=== PATIENT | male | born 1970 | race Two or more races ===

== ENCOUNTER 2024-03-27 12:51 | Inpatient (IN) | payer MEDICAID, OTHER ==
[~2024-03-27] VITALS: Ht 162.6 cm; Wt 80.3 kg
[2024-03-27] MEDS: LABETALOL HCL 20 MG/4 ML VL IV ONE
--- NOTE | 2024-03-27 13:19 | ED.PDOC ---
GI ASSESSMENT HPI Comments 53 y.o male with PMHx of HTN, presents to the ED for a chief complaint of epigastric and lower abdominal pain x 1 day associated with black colored diarrhea this morning. Patient reports pain is constant, begins at the epigastric region and is so located in the lower abdominal area. Patient reports taking pepto bismol last night prior to the diarrhea episode. He denies any bright red bloody stool, nausea, vomiting, fever, chills. No history of blood thinner intake or recent use of ASA. Patient also mentions drinking 2-3 beers daily. Chief Complaint: GI Bleed Time Seen by MD: 13:09 Primary Care Provider: NONE Reviewed Notes: Nurses Notes, Medications, Allergies Allergies: Coded Allergies: Penicillins (Verified Allergy, Severe, 03/27/24) Information Source: Patient Mode of Arrival: Ambulatory Timing: Days (1) Duration: Since onset Quality: Aching Vomitus: None Stool: Loose, Black Severity: Moderate Recent: None Recent Hx of: Other (peptobismol use ) Pain Location: Diffuse, Epigastric Associated sign and symptoms: Diarrhea, Melena, Abdominal Pain Past Medical History PAST MEDICAL HISTORY: HTN Surgical History (Other): left wrist Family History Family History: Reviewed,noncontributory to illness Social History Smoker: Non-Smoker Alcohol: Heavy Drugs: Denies Drug Use Lives In: Home Constitutional: denies: chills, diaphoresis, fatigue, fever, malaise, sweats, weakness, others EENTM: denies: blurred vision, double vision, ear bleeding, ear discharge, ear drainage, ear pain, ear ringing, eye pain, eye redness, hearing loss, mouth pain, mouth swelling, nasal discharge, nose bleeding, nose congestion, nose pain, photophobia, tearing, throat pain, throat swelling, voice changes, others Respiratory: denies: cough, hemoptysis, orthopnea, SOB at rest, shortness of breath, SOB with excertion, stridor, wheezing, others Cardiovascular: denies: chest pain, dizzy spells, diaphoresis, Dyspnea on exertion, edema, irregular heart beat, left arm pain, lightheadedness, palpitations, PND, syncope, others Gastrointestinal: reports: abdominal pain, diarrhea, melena; denies: abdomen distended, blood streaked bowels, constipated, dysphagia, difficulty swallowing, hematemesis, nausea, poor appetite, poor fluid intake, rectal bleeding, rectal pain, vomiting, others Genitourinary: denies: burning, dysuria, flank pain, frequency, hematuria, incontinence, penile discharge, penile sore, pain, testicle pain, testicle swelling, urgency, others Neurological: denies: dizziness, fainting, headache, left sided numbness, left sided weakness, numbness, paresthesia, pre-existing deficit, right sided numbness, right sided weakness, seizure, speech problems, tingling, tremors, weakness, others Musculoskeletal: denies: back pain, gout, joint pain, joint swelling, muscle pain, muscle stiffness, neck pain, others Integumetry: denies: bruises, change in color, change in hair/nails, dryness, laceration, lesions, lumps, rash, wounds, others Allergic/Immunocompromised: denies: Difficulty Healing, Frequent Infections, Hives, Itching, others Hematologic/Lymphatic: denies: anemia, blood clots, easy bleeding, easy bruising, swollen glands, others Endocrine: denies: excessive hunger, excessive sweating, excessive thirst, excessive urination, flushing, intolerance to cold, intolerance to heat, unexplained weight gain, unexplained weight loss, others Psychiatric: denies: anxiety, bipolar disorder, depression, hopeless, panic disorder, schizophrenia, sleepless, suicidal, others All Other Systems: Reviewed and Negative Physical Exam General Appearance: No Apparent Distress HEENT: Other (Moist mucous membranes. Face symmetric.) Neck: Full Range of Motion, Normal Inspection Respiratory: Chest Non-Tender, No Accessory Muscle Use, No Respiratory Distress, Normal Breath Sounds Cardiovascular: No Edema, No JVD, Regular Rate/Rhythm Breast Exam: Deferred Gastrointestinal: Epigastric, Soft, Suprapubic, Tenderness Genitalia: Deferred Pelvic: Deferred Rectal: Deferred Extremities: Normal inspection, Normal range of motion, Non-tender, No pedal edema Neurologic: Alert (Oriented x4), Normal Affect, Normal Mood, Other (Ambulatory without difficulty. No gross focal deficit.) Cerebellar Function: NOT DONE Reflexes: NOT DONE Skin: Dry, Normal Color, Warm Lymphatic: NOT DONE Was a procedure done? Was a procedure done?: No GI differential Dx Differential Diagnosis: Appendicitis, Diverticular disease, Gastritis/PUD, Gastroenteritis, Inflammatory BD, Pancreatitis, UTI, Dehydration, Electrolyte Imbalance, Food Poisoning, Bacterial, Viral, Hypovolemia, Ischemic Bowel, Anemia, Esophageal Varicies, Stress Ulcer X-Ray, Labs, Meds, VS Vital Signs Date Time Temp Pulse Resp B/P (MAP) Pulse Ox O2 Delivery O2 Flow Rate FiO2 03/27/24 18:48 102 19 166/84 03/27/24 17:46 107 26 160/74 03/27/24 17:34 99.3 107 28 160/74 (102) 94 99.3 03/27/24 17:34 107 26 94 Room Air* 0 21 03/27/24 12:58 99.2 134 16 144/95 (111) 94 Lab Test 03/27/24 14:32 03/27/24 13:44 Range/Units Urine Color [place] H Yellow Urine Clarity Turbid H Clear Urine pH 5.5 5.0-9.0 Urine Specific [place] 1.029 1.001-1.035 Urine Protein 1+ H Negative Urine Ketones 1+ H Negative Urine Blood Negative Negative /uL Urine Nitrite Negative Negative Urine Bilirubin 1+ Negative Urine Urobilinogen 4 H Negative mg/dL Urine Leukocyte Esterase Trace Negative /uL Urine RBC 2 0 - 3 /hpf Urine Microscopic WBC 3 0-3 /HPF Urine Squamous Epithelial Cells Few <5 /hpf Urine Bacteria Few H None Seen /hpf Urine Hyaline Casts Many 0 - 2 /lpf Urine Mucus Few None Seen Urine Glucose Normal Normal mg/dL White Blood Count 15.9 H 4.4-10.8 10^3/uL Red Blood Count 4.63 4.5-5.90 10^6/uL Hemoglobin 15.1 13.5-17.5 g/dL Hematocrit 45.6 41.0-53.0 % Mean Corpuscular Volume 98.5 80.0-100.0 fL Mean Corpuscular Hemoglobin 32.6 H 28.0-32.0 pg Mean Corpuscular Hemoglobin Concent 33.1 32.0-36.0 g/dL Red Cell Distribution Width 14.3 11.8-14.3 % Platelet Count 237 140-450 10^3/uL Mean Platelet Volume 10.0 6.9-10.8 fL Neutrophils (%) (Auto) 83.8 H 37.0-80.0 % Lymphocytes (%) (Auto) 6.3 L 10.0-50.0 % Monocytes (%) (Auto) 9.5 0.0-12.0 % Eosinophils (%) (Auto) 0.2 0.0-7.0 % Basophils (%) (Auto) 0.2 0.0-2.0 % Neutrophils # (Auto) 13.3 H 1.6-8.6 10 ^3/uL Lymphocytes # (Auto) 1.0 0.4-5.4 10 ^3/uL Monocytes # (Auto) 1.5 H 0-1.3 10 ^3/uL Eosinophils # (Auto) 0 0-0.8 10 ^3/uL Basophils # (Auto) 0 0-0.2 10 ^3/uL Nucleated Red Blood Cells 0.1 % Sodium Level 136 136-145 mmol/L Potassium Level 4.1 3.5-5.1 mmol/L Chloride Level 102 98-107 mmol/L Carbon Dioxide Level 27 20-31 mmol/L Anion Gap 7 5-15 Blood Urea Nitrogen 13 9-23 mg/dL Creatinine 0.93 0.700-1.30 mg/dL Glomerular Filtration Rate Calc 97 >90 mL/min BUN/Creatinine Ratio 14.0 10.0-20.0 Serum Glucose 112 H 74-106 mg/dL Calcium Level 9.9 8.7-10.4 mg/dL Total Bilirubin 1.1 H 0.2-1.0 mg/dL Aspartate Amino Transferase (AST) 20 13-40 U/L Alanine Aminotransferase (ALT) 21 7-40 U/L Alkaline Phosphatase 122 H 46-116 U/L Total Protein 7.3 5.7-8.2 g/dL Albumin 4.1 3.2-4.8 g/dL Lipase 25 12-53 U/L Current Medications Medications (Trade) Dose Ordered Sig/Willi Route Start Time Stop Time Status Last Admin Sodium Chloride 1,000 ml @ 1,000 mls/hr Q1H ONCE IV 03/27/24 14:00 03/27/24 14:59 DC 03/27/24 17:46 Morphine Sulfate 4 mg ONCE ONCE IV 03/27/24 14:00 03/27/24 14:02 DC 03/27/24 17:46 Ondansetron HCl (Zofran) 4 mg ONCE ONCE IV 03/27/24 14:00 03/27/24 14:02 DC 03/27/24 17:46 Pantoprazole Sodium (Protonix) 40 mg ONCE ONCE IV 03/27/24 14:15 03/27/24 14:35 DC 03/27/24 17:[address] [address] Ph: [phone] DIAGNOSTIC IMAGING Diagnostic Imaging Report : [id number] Signed PATIENT: DIAMOND LERNER ACCT: [id number] UNIT: [id number] : 1970 LOC: ER ROOM / BED: / AGE / SEX: 53 / M ADM STATUS: REG ER SERVICE [id number] ORDERING PHYSICIAN: BREA LYNHC MD PROCEDURE(s): ABPL - CT AB PEL WO CON-NO ORAL OR IV REASON: epig and low abd pain, diarrhea ORDER NUMBER(s): [id number], ACCESSION NUMBER(s): [id number] Exam: CT CT AB PEL WO CON-NO ORAL OR IV History: epig and low abd pain, diarrhea Comparison Study: None available at time of dictation. TECHNIQUE: Multidetector CT of the abdomen and pelvis without contrast. Axial, coronal and sagittal multiplanar reformats were obtained from the axial data set by the technologist. Radiation Dose Information: CT Dose: CTDI volume is 12.51 mGy. Dose-length product is 641.98 mGy*cm FINDINGS: Right basilar atelectasis. Partially visualized heart is unremarkable. Trace pericardial effusion. Mild hepato megaly. Otherwise, liver, spleen, gallbladder, and pancreas unremarkable. Mild fat stranding adjacent to the bilateral adrenal glands. No adrenal nodules are noted. Mild nonspecific bilateral perirenal fat stranding. 2.8 cm left renal lower pole cyst. Postsurgical changes of the interpolar to lower pole region of the right kidney with associated scarring. No hydronephrosis bilaterally. Urinary bladder is decompressed limiting evaluation with mild submucosal fatty infiltration and wall irregularity. Prostate measures 3.2 x 4.6 by 2.8 cm. Mild gastric wall thickening. Linear hypodensity within the proximal stomach, nonspecific. There is submucosal fatty infiltration of the distal terminal ileum. Appendix measures up to 1.5 cm with adjacent fat stranding. Small nodular densities are noted within the right lower abdominal quadrant adjacent to the appendix, largest measuring up to 1.9 by 1.6 cm which may represent lymph nodes. There is pancolonic submucosal fatty infiltration most prominent over the ascending colon. There is scattered colonic diverticulosis without diverticulitis. No evidence of intraperitoneal free air or free fluid. Mild atherosclerotic calcification of the aorta. Otherwise, no evidence of aortic aneurysm. Left with moderate right-sided fat containing inguinal hernias. The soft tissues unremarkable. No destructive osseous lesions are noted. IMPRESSION: Appendix measures up to 1.5 cm with associated adjacent fat stranding consistent with acute appendicitis. There are nodular densities within the right lower abdominal quadrant adjacent to the appendix which may represent prominent lymph nodes measuring up to 1.9 x 1.6 cm. There is pancolonic distal terminal ileum submucosal fatty infiltration most prominent over the ascending colon. Correlate for possible chronic inflammatory bowel disease. Mild gastric wall thickening. Correlate for gastritis. Urinary bladder is decompressed with minimal wall irregularity. Correlation with urinalysis is recommended to exclude cystitis. Additional findings as above. Critical Result: Acute appendicitis Findings discussed with BREA LYNCH at 03/27/2024 01:53 PM, and acknowledged receipt and understanding of the findings. .. ATED BY: JOANNA HAIRSTON DO DICTATED DATE/TIME: 03/27/24 1354 SIGNED BY: JOANNA HAIRSTON DO SIGNED DATE/TIME: 03/27/24 1354 CC: X-Ray, Labs, Meds, VS Comment 53-year-old male with a history of hypertension complaining of epigastric and lower abdominal pain associated with black diarrhea Vitals remarkable for heart rate 134, BP 144/95, oxygen saturation 94% on room air Exam remarkable for epigastric and suprapubic tenderness to palpation. Nontender to percussion. No rebound or guarding. Rhythm strip independently interpreted by me: Sinus tach, rate 130, no ectopy. CT abdomen and pelvis IMPRESSION: Appendix measures up to 1.5 cm with associated adjacent fat stranding consistent with acute appendicitis. There are nodular densities within the right lower abdominal quadrant adjacent to the appendix which may represent prominent lymph nodes measuring up to 1.9 x 1.6 cm. There is pancolonic distal terminal ileum submucosal fatty infiltration most prominent over the ascending colon. Correlate for possible chronic inflammatory bowel disease. Mild gastric wall thickening. Correlate for gastritis. Urinary bladder is decompressed with minimal wall irregularity. Correlation with urinalysis is recommended to exclude cystitis. Additional findings as above. Critical Result: Acute appendicitis CBC remarkable for WBC 15.9, CMP unremarkable, lipase normal, UA abnormal c/w possible UTI Patient treated with the following in the ED: 1 L 0.9 normal saline IV bolus, morphine 4 mg IV, Zofran 4 mg IV, Protonix 40 mg IV, Zosyn 4.5 mg IV. Patient was placed NPO Case discussed with Dr. Glen Novak, agrees with plan and will see the pt. Plan is to admit the patient for IV antibiotics and surgical/GI evaluation. Time of 1ST Reevaluation: 13:15 Reevaluation 1ST: Unchanged Patient Education/Counseling: Diagnosis, Treatment, Prognosis Family Education/Counseling: No Family Present Departure 1 Departure Time of Disposition: 14:09 Impression: Primary Impression: Acute appendicitis Qualified Codes: K35.80 - Unspecified acute appendicitis Additional Impression: Inflammatory bowel disease Disposition: ADMITTED INPATIENT Admit to: Med Surg Condition: Guarded Critical Care Note Critical Care Time?: No Stability Stability form required: No I personally scribed for BREA LYNCH MD ([facility]) on 03/27/24 at 13:19. Electronically submitted by Lynn Downing ([facility]). I personally scribed for BREA LYNCH MD ([facility]) on 03/27/24 at 13:20. Electronically submitted by Lynn Downing ([facility]). I personally scribed for BREA LYNCH MD ([facility]) on 03/27/24 at 13:59. Electronically submitted by Lynn Downing ([facility]). I personally scribed for BREA LYNCH MD ([facility]) on 03/27/24 at 16:48. Electronically submitted by Lynn Downing ([facility]). BREA LYNCH MD Mar 27, 2024 13:19
--- NOTE | 2024-03-27 13:56 | DVH ---
Exam: CT CT AB PEL WO CON-NO ORAL OR IV History: epig and low abd pain, diarrhea Comparison Study: None available at time of dictation. TECHNIQUE: Multidetector CT of the abdomen and pelvis without contrast. Axial, coronal and sagittal m ultiplanar reformats were obtained from the axial data set by the technologist. Radiation Dose Information: CT Dose: CTDI volume is 12.51 mGy. Dose-length product is 641.98 mGy*cm FINDINGS: Right basilar atelectasis. Partially visualized heart is unremarkable. Trace pericardial effusion. Mild hepato megaly. Otherwise, liver, spleen, gallbladder, and pancreas unremarkable. Mild fat stran ding adjacent to the bilateral adrenal glands. No adrenal nodules are noted. Mild nonspecific bilateral perirenal fat stranding. 2.8 cm left renal lower pole cyst. Postsurgical c hanges of the interpolar to lower pole region of the right kidney with associated scarring. No hydron ephrosis bilaterally. Urinary bladder is decompressed limiting evaluation with mild submucosal fatty infiltration and wall irregularity. Prostate measures 3.2 x 4.6 by 2.8 cm. Mild gastric wall thickening. Linear hypodensity within the proximal stomach, nonspecific. There is s ubmucosal fatty infiltration of the distal terminal ileum. Appendix measures up to 1.5 cm with adjace nt fat stranding. Small nodular densities are noted within the right lower abdominal quadrant adjacen t to the appendix, largest measuring up to 1.9 by 1.6 cm which may represent lymph nodes. There is pancolonic submucosal fatty infiltration most prominent over the ascending colon. There is s cattered colonic diverticulosis without diverticulitis. No evidence of intraperitoneal free air or free fluid. Mild atherosclerotic calcification of the aorta. Otherwise, no evidence of aortic aneurysm. Left with moderate right-sided fat containing inguinal hernias. The soft tissues unremarkable. No destructive osseous lesions are noted. IMPRESSION: Appendix measures up to 1.5 cm with associated adjacent fat stranding consistent with acute appendici tis. There are nodular densities within the right lower abdominal quadrant adjacent to the appendix which may represent prominent lymph nodes measuring up to 1.9 x 1.6 cm. There is pancolonic distal terminal ileum submucosal fatty infiltration most prominent over the ascen ding colon. Correlate for possible chronic inflammatory bowel disease. Mild gastric wall thickening. Correlate for gastritis. Urinary bladder is decompressed with minimal wall irregularity. Correlation with urinalysis is recom mended to exclude cystitis. Additional findings as above. Critical Result: Acute appendicitis Findings discussed with BREA LYNCH at 03/27/2024 01:53 PM, and acknowledged receipt and understanding of the findings. ..
[2024-03-27 13:57] LABS: Basophils # (auto) 0 10 ^3/uL (0-0.2); Basophils % (auto) 0.2 % (0.0-2.0); Eosinophils # (auto) 0 10 ^3/uL (0-0.8); Eosinophils % (auto) 0.2 % (0.0-7.0); Hematocrit 45.6 % (41.0-53.0); Hemoglobin 15.1 g/dL (13.5-17.5); Lymphocytes % (auto) 6.3 % (10.0-50.0); Mean Corpuscular Hemoglobin 32.6 pg (28.0-32.0); Mean Corpuscular Hgb Conc. 33.1 g/dL (32.0-36.0); Mean Corpuscular Volume 98.5 fL (80.0-100.0); Monocytes # (auto) 1.5 10 ^3/uL (0-1.3); Monocytes % (auto) 9.5 % (0.0-12.0); Neutrophils # (auto) 13.3 10 ^3/uL (1.6-8.6); Neutrophils % (auto) 83.8 % (37.0-80.0); Nucleated Red Blood Cells % 0.1 %; Platelet Count (auto) 237 10^3/uL (140-450); Red Blood Cells 4.63 10^6/uL (4.5-5.90); Red Cell Distribution Width 14.3 % (11.8-14.3); White Blood Cell 15.9 10^3/uL (4.4-10.8)
[2024-03-27 14:13] LABS: Alanine Aminotransferase 21 U/L (7-40); Albumin 4.1 g/dL (3.2-4.8); Anion Gap 7 (5-15); Aspartate Aminotransferase 20 U/L (13-40); Blood Urea Nitrogen 13 mg/dL (9-23); Calcium 9.9 mg/dL (8.7-10.4); Carbon Dioxide 27 mmol/L (20-31); Chloride 102 mmol/L (98-107); Potassium 4.1 mmol/L (3.5-5.1); Sodium 136 mmol/L (136-145)
[2024-03-27 14:14] LABS: Bilirubin, Total 1.1 mg/dL (0.2-1.0); Total Protein 7.3 g/dL (5.7-8.2)
[2024-03-27 14:25] LABS: Alkaline Phosphatase 122 U/L (46-116); Glucose 112 mg/dL (74-106)
[2024-03-27 14:45] LABS: Urine Bacteria FEW /hpf (None Seen); Urine Blood Negative /uL (Negative); Urine Clarity Turbid (Clear); Urine Color Orange (Yellow); Urine Hyaline Cast MANY /lpf (0 - 2); Urine Mucus FEW (None Seen); Urine Protein, UAD 1+ (Negative); Urine Specific Gravity 1.029 (1.001-1.035); Urine Squamous Epithelial Cell FEW /hpf (<5); Urine Urobilinogen 4 mg/dL (Negative); Urine WBC 3 /HPF (0-3); Urine pH 5.5 (5.0-9.0)
--- NOTE | 2024-03-27 17:14 | DVHINCON2 ---
Date of service: Mar 27, 2024 Allergies: Coded Allergies: Penicillins (Verified Allergy, Severe, 03/27/24) Vital Signs Vital Signs Date Time Temp Pulse Resp B/P (MAP) Pulse Ox O2 Delivery O2 Flow Rate FiO2 03/27/24 12:58 99.2 134 16 144/95 (111) 94 Labs/Diagnostic Data Labs Test 03/27/24 14:32 03/27/24 13:44 Range/Units Urine Color [place] H Yellow Urine Clarity Turbid H Clear Urine pH 5.5 5.0-9.0 Urine Specific [place] 1.029 1.001-1.035 Urine Protein 1+ H Negative Urine Ketones 1+ H Negative Urine Blood Negative Negative /uL Urine Nitrite Negative Negative Urine Bilirubin 1+ Negative Urine Urobilinogen 4 H Negative mg/dL Urine Leukocyte Esterase Trace Negative /uL Urine RBC 2 0 - 3 /hpf Urine Microscopic WBC 3 0-3 /HPF Urine Squamous Epithelial Cells Few <5 /hpf Urine Bacteria Few H None Seen /hpf Urine Hyaline Casts Many 0 - 2 /lpf Urine Mucus Few None Seen Urine Glucose Normal Normal mg/dL White Blood Count 15.9 H 4.4-10.8 10^3/uL Red Blood Count 4.63 4.5-5.90 10^6/uL Hemoglobin 15.1 13.5-17.5 g/dL Hematocrit 45.6 41.0-53.0 % Mean Corpuscular Volume 98.5 80.0-100.0 fL Mean Corpuscular Hemoglobin 32.6 H 28.0-32.0 pg Mean Corpuscular Hemoglobin Concent 33.1 32.0-36.0 g/dL Red Cell Distribution Width 14.3 11.8-14.3 % Platelet Count 237 140-450 10^3/uL Mean Platelet Volume 10.0 6.9-10.8 fL Neutrophils (%) (Auto) 83.8 H 37.0-80.0 % Lymphocytes (%) (Auto) 6.3 L 10.0-50.0 % Monocytes (%) (Auto) 9.5 0.0-12.0 % Eosinophils (%) (Auto) 0.2 0.0-7.0 % Basophils (%) (Auto) 0.2 0.0-2.0 % Neutrophils # (Auto) 13.3 H 1.6-8.6 10 ^3/uL Lymphocytes # (Auto) 1.0 0.4-5.4 10 ^3/uL Monocytes # (Auto) 1.5 H 0-1.3 10 ^3/uL Eosinophils # (Auto) 0 0-0.8 10 ^3/uL Basophils # (Auto) 0 0-0.2 10 ^3/uL Nucleated Red Blood Cells 0.1 % Sodium Level 136 136-145 mmol/L Potassium Level 4.1 3.5-5.1 mmol/L Chloride Level 102 98-107 mmol/L Carbon Dioxide Level 27 20-31 mmol/L Anion Gap 7 5-15 Blood Urea Nitrogen 13 9-23 mg/dL Creatinine 0.93 0.700-1.30 mg/dL Glomerular Filtration Rate Calc 97 >90 mL/min BUN/Creatinine Ratio 14.0 10.0-20.0 Serum Glucose 112 H 74-106 mg/dL Calcium Level 9.9 8.7-10.4 mg/dL Total Bilirubin 1.1 H 0.2-1.0 mg/dL Aspartate Amino Transferase (AST) 20 13-40 U/L Alanine Aminotransferase (ALT) 21 7-40 U/L Alkaline Phosphatase 122 H 46-116 U/L Total Protein 7.3 5.7-8.2 g/dL Albumin 4.1 3.2-4.8 g/dL Lipase 25 12-53 U/L Assessment [id number] R/O AC APPENDICITIS CONSIDER LAP/OPEN APPENDECTOMY EMERGENTLY Plan discussed with: Patient ANITA CEDENO MD Mar 27, 2024 17:14
[2024-03-27 17:34] VITALS: PULSE 107; RESP 26; O2SAT 94
[2024-03-27] MEDS: SODIUM CHLORIDE 0.9% 1,000 ML IV ONE ×2 (17:46→22:35)
[2024-03-27] MEDS: MORPHINE SULFATE 4 MG/ML SYR/VIAL IV ONE (17:46)
[2024-03-27] MEDS: ONDANSETRON HCL 4 MG/2 ML VIAL IV ONE (17:46)
[2024-03-27] MEDS: PANTOPRAZOLE 40 MG/10 ML VIAL INJ IV ONE (17:46)
[2024-03-27] MEDS: PIPERACILLIN-TAZO 4.5GM 100 ML IV ONE (18:09)
[2024-03-27] MEDS ORDERED: levoFLOXacin 500MG 100 ML IV ONE ×2 (19:00→20:00)
[2024-03-27] MEDS ORDERED: ONDANSETRON HCL 4 MG/2 ML VIAL IV PRN (19:00)
[2024-03-27] MEDS: SUCCINYLCHOLINE CHLORIDE 20 MG/ML 10ML VIAL IV ONE (19:23)
[2024-03-27] MEDS: BUPIVACAINE 0.25% INJ 50ML VIAL ONE (19:24)
[2024-03-27] MEDS ORDERED: MIDAZOLAM HCL 2MG/2ML 2ml VIAL (1mg/ml) ONE (19:26)
[2024-03-27] MEDS ORDERED: fentaNYL CITRATE 100 MCG/2 ML VL ONE (19:26)
[2024-03-27] MEDS ORDERED: MEPERIDINE HCL (50 MG/ML) 1 ML VIAL ONE (19:26)
[2024-03-27 19:30] LABS: INR 1.12 (0.9-1.15); Partial Thromboplastin Time 32.5 SEC (24.5-34.5); Prothrombin Time 11.7 sec (9.3-11.8)
--- NOTE | 2024-03-27 19:48 | DVH ---
CHEST RADIOGRAPH Indication: preop Technique: Single frontal view of the chest was obtained COMPARISON: None FINDINGS: Lines and Tubes: None Lungs: Clear Pleura: No effusion. No pneumothorax. Cardiomediastinal contours: Unremarkable Bones: Unremarkable IMPRESSION: No abnormality demonstrated.
[2024-03-27] MEDS: CLINDAMYCIN 600MG IV 50 ML IV ONE ×2 (20:14→20:19)
[2024-03-27] MEDS ORDERED: DexAMETHasone SOD PHOS 10MG/1ML VIAL INJ ONE (20:21)
[2024-03-27] MEDS ORDERED: ROCURONIUM 10MG/ML 10ML VIAL IV ONE (20:21)
[2024-03-27] MEDS ORDERED: ONDANSETRON HCL 4 MG/2 ML VIAL ONE (20:21)
--- NOTE | 2024-03-27 20:42 | DVHHP2 ---
History of Present Illness Reason for Visit: Abdominal pain History of Present Illness 53-year-old presents for evaluation of abdominal pain. Patient reports a one day history sharp lower abdominal pain. He states the pain standing hurts in the epigastric region radiates to the lower abdomen. Denies nausea or vomiting. No fever or chills. Past Medical History Hypertension Past Surgical History Denies Family History Noncontributory Smoke: No ALCOHOL: occassional Drugs: None Lives: with Family Review of Systems Review of Systems Review of systems are currently negative otherwise addressed in HPI. Allergies: Coded Allergies: Penicillins (Verified Allergy, Severe, 03/27/24) Medications Current Medications Medications Dose Ordered Sig/Willi Route Start Time Stop Time Status Last Admin Dose Admin Metronidazole 100 ml @ 100 mls/hr Q8HR IV 03/27/24 22:00 Pantoprazole Sodium 40 mg DAILY IV 03/28/24 10:00 Ondansetron HCl 4 mg Q4HP PRN IV 03/27/24 19:00 Morphine Sulfate 2 mg Q4HPRN PRN IV 03/27/24 19:00 Cefepime HCl 50 ml @ 12.5 mls/hr Q12H IV 03/28/24 08:00 Exam Vital Signs Vital Signs Date Time Temp Pulse Resp B/P (MAP) Pulse Ox O2 Delivery O2 Flow Rate FiO2 03/27/24 18:48 102 19 166/84 03/27/24 17:34 99.3 94 99.3 03/27/24 17:34 Room Air* 0 21 Exam Gen: 53-year-old male in mild distress Skin: Warm, dry, normal color and texture, no rash. HEENT: Normocephalic atraumatic, mucous membranes moist and pink. Neck: Cervical and supraclavicular nodes normal without enlargement, trachea is midline, thyroid gland is normal without masses. Pulmonary: Clear to auscultation and percussion bilaterally. Cardiac: Regular rate and rhythm. No murmur Abdomen: Soft, or abdominal pain, nondistended, bowel sounds present all 4 quadrants, no guarding, no rigidity, no organomegaly. Extremities: No cyanosis, clubbing, no edema Neuro: Cranial nerves II through XII grossly intact, normal affect and speech, no focal motor deficits. Labs/Xrays ORDERING PHYSICIAN: BREA LYNCH MD PROCEDURE(s): ABPL - CT AB PEL WO CON-NO ORAL OR IV REASON: epig and low abd pain, diarrhea ORDER NUMBER(s): [id number], ACCESSION NUMBER(s): [id number] Exam: CT CT AB PEL WO CON-NO ORAL OR IV History: epig and low abd pain, diarrhea Comparison Study: None available at time of dictation. TECHNIQUE: Multidetector CT of the abdomen and pelvis without contrast. Axial, coronal and sagittal multiplanar reformats were obtained from the axial data set by the technologist. Radiation Dose Information: CT Dose: CTDI volume is 12.51 mGy. Dose-length product is 641.98 mGy*cm FINDINGS: Right basilar atelectasis. Partially visualized heart is unremarkable. Trace pericardial effusion. Mild hepato megaly. Otherwise, liver, spleen, gallbladder, and pancreas unremarkable. Mild fat stranding adjacent to the bilateral adrenal glands. No adrenal nodules are noted. Mild nonspecific bilateral perirenal fat stranding. 2.8 cm left renal lower pole cyst. Postsurgical changes of the interpolar to lower pole region of the right kidney with associated scarring. No hydronephrosis bilaterally. Urinary bladder is decompressed limiting evaluation with mild submucosal fatty infiltration and wall irregularity. Prostate measures 3.2 x 4.6 by 2.8 cm. Mild gastric wall thickening. Linear hypodensity within the proximal stomach, nonspecific. There is submucosal fatty infiltration of the distal terminal ileum. Appendix measures up to 1.5 cm with adjacent fat stranding. Small nodular densities are noted within the right lower abdominal quadrant adjacent to the appendix, largest measuring up to 1.9 by 1.6 cm which may represent lymph nodes. There is pancolonic submucosal fatty infiltration most prominent over the ascending colon. There is scattered colonic diverticulosis without diverticulitis. No evidence of intraperitoneal free air or free fluid. Mild atherosclerotic calcification of the aorta. Otherwise, no evidence of aortic aneurysm. Left with moderate right-sided fat containing inguinal hernias. The soft tissues unremarkable. No destructive osseous lesions are noted. IMPRESSION: Appendix measures up to 1.5 cm with associated adjacent fat stranding consistent with acute appendicitis. There are nodular densities within the right lower abdominal quadrant adjacent to the appendix which may represent prominent lymph nodes measuring up to 1.9 x 1.6 cm. There is pancolonic distal terminal ileum submucosal fatty infiltration most prominent over the ascending colon. Correlate for possible chronic inflammatory bowel disease. Mild gastric wall thickening. Correlate for gastritis. Urinary bladder is decompressed with minimal wall irregularity. Correlation with urinalysis is recommended to exclude cystitis. Additional findings as above. Critical Result: Acute appendicitis Findings discussed with BREA LYNCH at 03/27/2024 01:53 PM, and acknowledged receipt and understanding of the findings. .. RING PHYSICIAN: JINA BATES PROCEDURE(s): CXR1 - CHEST XRAY 1 VIEW REASON: preop ORDER NUMBER(s): [id number], ACCESSION NUMBER(s): [id number] CHEST RADIOGRAPH Indication: preop Technique: Single frontal view of the chest was obtained COMPARISON: None FINDINGS: Lines and Tubes: None Lungs: Clear Pleura: No effusion. No pneumothorax. Cardiomediastinal contours: Unremarkable Bones: Unremarkable IMPRESSION: No abnormality demonstrated. Labs Test 03/27/24 19:07 03/27/24 14:32 03/27/24 13:44 Range/Units Prothrombin Time 11.7 9.3-11.8 sec Prothrombin Time INR 1.12 0.9-1.15 Activated Partial Thromboplast Time 32.5 24.5-34.5 SEC Urine Color Rumsey H Yellow Urine Clarity Turbid H Clear Urine pH 5.5 5.0-9.0 Urine Specific [place] 1.029 1.001-1.035 Urine Protein 1+ H Negative Urine Ketones 1+ H Negative Urine Blood Negative Negative /uL Urine Nitrite Negative Negative Urine Bilirubin 1+ Negative Urine Urobilinogen 4 H Negative mg/dL Urine Leukocyte Esterase Trace Negative /uL Urine RBC 2 0 - 3 /hpf Urine Microscopic WBC 3 0-3 /HPF Urine Squamous Epithelial Cells Few <5 /hpf Urine Bacteria Few H None Seen /hpf Urine Hyaline Casts Many 0 - 2 /lpf Urine Mucus Few None Seen Urine Glucose Normal Normal mg/dL White Blood Count 15.9 H 4.4-10.8 10^3/uL Red Blood Count 4.63 4.5-5.90 10^6/uL Hemoglobin 15.1 13.5-17.5 g/dL Hematocrit 45.6 41.0-53.0 % Mean Corpuscular Volume 98.5 80.0-100.0 fL Mean Corpuscular Hemoglobin 32.6 H 28.0-32.0 pg Mean Corpuscular Hemoglobin Concent 33.1 32.0-36.0 g/dL Red Cell Distribution Width 14.3 11.8-14.3 % Platelet Count 237 140-450 10^3/uL Mean Platelet Volume 10.0 6.9-10.8 fL Neutrophils (%) (Auto) 83.8 H 37.0-80.0 % Lymphocytes (%) (Auto) 6.3 L 10.0-50.0 % Monocytes (%) (Auto) 9.5 0.0-12.0 % Eosinophils (%) (Auto) 0.2 0.0-7.0 % Basophils (%) (Auto) 0.2 0.0-2.0 % Neutrophils # (Auto) 13.3 H 1.6-8.6 10 ^3/uL Lymphocytes # (Auto) 1.0 0.4-5.4 10 ^3/uL Monocytes # (Auto) 1.5 H 0-1.3 10 ^3/uL Eosinophils # (Auto) 0 0-0.8 10 ^3/uL Basophils # (Auto) 0 0-0.2 10 ^3/uL Nucleated Red Blood Cells 0.1 % Sodium Level 136 136-145 mmol/L Potassium Level 4.1 3.5-5.1 mmol/L Chloride Level 102 98-107 mmol/L Carbon Dioxide Level 27 20-31 mmol/L Anion Gap 7 5-15 Blood Urea Nitrogen 13 9-23 mg/dL Creatinine 0.93 0.700-1.30 mg/dL Glomerular Filtration Rate Calc 97 >90 mL/min BUN/Creatinine Ratio 14.0 10.0-20.0 Serum Glucose 112 H 74-106 mg/dL Calcium Level 9.9 8.7-10.4 mg/dL Total Bilirubin 1.1 H 0.2-1.0 mg/dL Aspartate Amino Transferase (AST) 20 13-40 U/L Alanine Aminotransferase (ALT) 21 7-40 U/L Alkaline Phosphatase 122 H 46-116 U/L Total Protein 7.3 5.7-8.2 g/dL Albumin 4.1 3.2-4.8 g/dL Lipase 25 12-53 U/L Assessment/Plan Assessment/Plan Assessment Acute appendicitis Acute abdominal pain Leukocytosis Plan Admit the patient to [facility] [place] to the hospitalist Surgical consultation NPO Cefepime/Flagyl Pain management Continue treatment per orders. Plan discussed with: Patient My Orders Orders - JINA BATES Procedure Category Date Status Time Metronidazole PHA 03/27/24 In Process 500mg/100ml (Flagyl 22:00 Chest Xray 1 View XY 03/27/24 Resulted 18:56 Sodium Chloride 0.9% PHA 03/27/24 In Process 19:00 Pantoprazole PHA 03/28/24 In Process (Protonix) 10:00 Admit ADMIT 03/27/24 Transmitted 18:56 Ondansetron Hcl PHA 03/27/24 In Process (Zofran) 19:00 Complete Blood Count LAB 03/28/24 Verified 04:00 Comprehensive LAB 03/28/24 Verified Metabolic Panel 04:00 Condition: Stable EVANGELINA 03/27/24 In Process 18:56 Bedrest With Bathroom EVANGELINA 03/27/24 In Process Privileg 18:56 Morphine Sulfate PHA 03/27/24 In Process Injection 19:00 Cefepime 2gm/50ml Ns PHA 03/28/24 In Process (Maxipime 2gm/50ml) 08:00 Cefepime 2gm/50ml Ns PHA 03/27/24 In Process (Maxipime 2gm/50ml) 20:15 Date of Service: Mar 27, 2024 Billing Provider: JINA BATES Common Visit Codes: [id number] INP/OBS CARE (HIGH) JINA BATES Mar 27, 2024 20:42
[2024-03-27] MEDS ORDERED: SUGAMMADEX 200mg/2ml Vial (100MG/ML) IV ONE (21:05)
--- NOTE | 2024-03-27 21:12 | DVHOP2 ---
Operative Report [id number] AC APPENDICITIS, INTRAABD ABSCESS, DENSE ADHESIONS DRAINAGE OF INTRAABD ABSCESS LYSIS OF ADHESIONS LAP APPENDECTOMY EBL 5 CC ONE DRAIN NO COMPLICATIONS ANITA CEDENO MD Mar 27, 2024 21:12
[2024-03-27 21:20] VITALS: O2SAT 94
--- NOTE | 2024-03-27 21:26 | DVHOP ---
DATE OF SURGERY: 03/27/2024 PREOPERATIVE DIAGNOSIS: Acute appendicitis, was found to have dense adhesions with intra-abdominal abscess. POSTOPERATIVE DIAGNOSIS: Acute appendicitis, was found to have dense adhesions with intra-abdominal abscess. PROCEDURES: Drainage of intra-abdominal abscess, lysis of adhesions and laparoscopic appendectomy. SURGEON: Brien Novak MD WAREHOUSE TECHNICIAN: None. ANESTHESIA: General. ESTIMATED BLOOD LOSS: 5 mL. DRAINS: One drain was used. COMPLICATIONS: No complications were encountered. DESCRIPTION OF PROCEDURE: The patient was prepped and draped in the usual sterile fashion in the supine position and a supraumbilical incision was applied, was taken down to the fascia. The Veress needle was introduced and CO2 insufflation was started. Pressure of 15 mmHg. The needle was withdrawn, replaced by the 12 mm trocar and a telescope was introduced and the patient was then placed in Trendelenburg position and the right upper lateral position. Two 5 mm ports were applied more inferiorly, one above the symphysis, the third midway between the upper two and the patient was placed in the Trendelenburg and right upper lateral position as I mentioned. The camera was moved to the lowermost 5 mm port, the upper 2 ports were used for surgery. The abscess was drained out in the right lower quadrant and the pelvis. The adhesions were taken down using Harmonic device. The base of the appendix was cleared for transection using the Endo MARIAN stapling device. The appendix released from the mesoappendix after clipping the mesoappendix at the base of the appendix and then releasing it for the Harmonic device. Appendix released in this fashion was retrieved from the supraumbilical wound in an EndoCatch bag without any complication. Hemostasis was secured. Irrigation fluid was removed. The port sites were free from bleeding. A size 19 Bernabe drainage was placed in the right lower quadrant and the pelvis, bringing out from the lowermost 5 mm port. After that, one port had been withdrawn, and securing it with a silk suture. Rosa Isela powder was applied for hemostasis to the emma-cecal location close to where the appendix stump was and then the patient was placed back supine. The omental tissue was wrapped around the cecum and the EndoClose suture used for the fascial closure of the supraumbilical wound. All the ports were withdrawn after all the CO2 been let out and the patient was placed back supine. The remainder of the wounds were brought together using 3-0 Monocryl suture in a subcuticular fashion. Surgical glue was applied and the drain was secured with a 2-0 nylon suture. Dressing was applied to the drain site as well. The patient tolerated both the procedures well and was taken back to the recovery room in his stable condition. MD OZ Landa/JERICA TID: [id number] RECEIPT: [id number] cc: Blanca Nuñez
[2024-03-27] MEDS ORDERED: hydrALAZINE HCL 20 MG/ML VL IV PRN (21:30)
[2024-03-27] MEDS ORDERED: KETOROLAC TROMETH 30 MG/ML 1ML VIAL IV ONE (21:30)
[2024-03-27] MEDS ORDERED: MORPHINE SULFATE 4 MG/ML SYR/VIAL IV PRN (21:30)
[2024-03-27] MEDS ORDERED: HYDROmorphone HCL 2 MG/ML VL/or syr IV PRN (21:30)
[2024-03-27] MEDS ORDERED: ONDANSETRON HCL 4 MG/2 ML VIAL IV ONE (21:30)
[2024-03-27] MEDS ORDERED: MIDAZOLAM HCL 2MG/2ML 2ml VIAL (1mg/ml) IV PRN (21:30)
[2024-03-27] MEDS ORDERED: ePHEDrine SULFATE 50 MG/ML AMP IV PRN (21:30)
--- NOTE | 2024-03-27 21:54 | DVHINCON2 ---
DATE OF CONSULTATION: 03/27/2024 HISTORY OF PRESENT ILLNESS: This patient is 53 years old, coming in with upper abdomen and lower abdominal pain. He also had black color diarrhea this morning and his pain started yesterday, some nausea, but no vomiting. No fever or chills. He does take alcohol frequently. PAST MEDICAL HISTORY: No diabetes, hypertension. PAST SURGICAL HISTORY: Left hand surgery for carpal tunnel. PHYSICAL EXAMINATION: VITAL SIGNS: Afebrile, stable signs. HEENT: With no evidence of pallor, cyanosis, or jaundice. NECK: Supple, nontender with no thyromegaly or lymphadenopathy. CHEST AND LUNGS: Clear. HEART: Within normal limits. ABDOMEN: Soft, tender in the lower abdomen with evidence of minimal rebound. EXTREMITIES: Unremarkable. NEUROLOGIC: He is intact. CLINICAL IMPRESSION: Rule out acute appendicitis. PLAN: Will be to consider laparoscopic, possible open appendectomy. Benefits, risks discussed and a consent obtained. MD OZ Landa/BILLY/SALOMON TID: [id number] RECEIPT: [id number] cc: Brien Novak MD
[2024-03-27 22:00] VITALS: BP 158/84; PULSE 95; RESP 18; TEMP 98.4; O2SAT 96
[2024-03-27] MEDS ORDERED: metroNIDAZOLE 500MG/100ML 100 ML IV SCH (22:00)
[2024-03-27 22:33] VITALS: PULSE 90; O2SAT 97
[2024-03-28] VITALS (8 sets, daily range): BP systolic 107–173; BP diastolic 64–85; PULSE 77–106; RESP 14–19; TEMP 98–98.6; O2SAT 93–97
[2024-03-28] MEDS ORDERED: PIPERACILLIN-TAZOB 3.375GM 100 ML IV SCH
[2024-03-28] MEDS: CEFEPIME 2GM/50ML NS 50 ML IV ONE (00:03)
[2024-03-28 07:59] LABS: Hematocrit 44.5 % (41.0-53.0); Hemoglobin 14.6 g/dL (13.5-17.5); Mean Corpuscular Hgb Conc. 32.9 g/dL (32.0-36.0); Mean Corpuscular Volume 100.5 fL (80.0-100.0); Platelet Count (auto) 207 10^3/uL (140-450); Red Blood Cells 4.43 10^6/uL (4.5-5.90); Red Cell Distribution Width 14.2 % (11.8-14.3); White Blood Cell 18.5 10^3/uL (4.4-10.8)
[2024-03-28 08:09] LABS: Alanine Aminotransferase 13 U/L (7-40); Alkaline Phosphatase 97 U/L (46-116); Anion Gap 9 (5-15); BUN/Creatinine Ratio 16.2 (10.0-20.0); Band Neutrophils % (manual) 0; Basophils % (manual) 0 (0.0-2.0); Blast Cells 0; Blood Urea Nitrogen 12 mg/dL (9-23); Calcium 9.2 mg/dL (8.7-10.4); Carbon Dioxide 23 mmol/L (20-31); Chloride 104 mmol/L (98-107); Eosinophils % (manual) 0 (0-7); Metamyelocytes % 0; Myelocytes % 0; Potassium 4.7 mmol/L (3.5-5.1); Promyelocytes % 0; Reactive Lymphocytes 0; Sodium 136 mmol/L (136-145)
[2024-03-28 08:10] LABS: Albumin 3.8 g/dL (3.2-4.8); Total Protein 6.9 g/dL (5.7-8.2)
[2024-03-28 08:18] LABS: Aspartate Aminotransferase 12 U/L (13-40); Bilirubin, Total 0.6 mg/dL (0.2-1.0); Glucose 184 mg/dL (74-106)
[2024-03-28] MEDS: PANTOPRAZOLE 40 MG/10 ML VIAL INJ IV SCH (09:10)
[2024-03-28] MEDS: CEFEPIME 2GM/50ML NS 50 ML IV SCH (09:10)
[2024-03-28] MEDS: MORPHINE SULFATE INJ 2 MG/ml SYRG IV PRN (09:35)
[2024-03-28] MEDS ORDERED: levoFLOXacin 500MG 100 ML IV SCH (10:00)
[2024-03-28] MEDS ORDERED: PHENYLEPHRINE HCL 10 MG/ML VL IV ONE (10:12)
[2024-03-28 12:07] LABS: Lymphocytes % (manual) 3 (10.0-50.0); Macrocytosis Slight; Monocytes % (manual) 3 (0-12); Platelet Estimate Adequate
--- NOTE | 2024-03-28 17:14 | DVHPN2 ---
Progress Note Date Seen: Mar 28, 2024 Medical Necessity Reason Pt with a Central, PICC or Fol: No Subjective Patient reports: No new complaints Review of Systems: HEENT:Normal, CVS:Normal, RESPIRATORY:Normal, GI:Normal, :Normal, MSK:Normal, NEURO:Normal Objective vital signs Vital Sign Date Time Temp Pulse Resp B/P (MAP) Pulse Ox O2 Delivery O2 Flow Rate FiO2 03/28/24 10:35 84 16 153/71 03/28/24 09:00 98.4 96 98.4 03/28/24 08:00 Room Air* 0 21 Total Intake and Output 03/27/24 03/27/24 03/28/24 15:00 23:00 07:00 Intake Total 50 ml 150 ml Output Total 0 ml Balance 50 ml 150 ml medications Current Medications Medications Dose Ordered Sig/Willi Route Start Time Stop Time Status Last Admin Dose Admin Pantoprazole Sodium 40 mg DAILY IV 03/28/24 10:00 03/28/24 09:10 40 MG Ondansetron HCl 4 mg Q4HP PRN IV 03/27/24 19:00 Morphine Sulfate 2 mg Q4HPRN PRN IV 03/27/24 19:00 03/28/24 09:35 2 MG Cefepime HCl 50 ml @ 12.5 mls/hr Q12H IV 03/28/24 08:00 03/28/24 09:10 12.5 MLS/HR Examination: GENERAL:Normal, HEENT:Normal, NECK:Normal, LUNGS:Normal, CVS:Normal, ABDOMEN:Normal, ABDOMEN:Abnormal (drain+), MSK:Normal, SKIN:Normal, NEURO:Normal, :Normal laboratory and microbiology Laboratory Tests 03/28/24 07:13 Test 03/28/24 07:13 Range/Units Serum Glucose 184 H 74-106 mg/dL Problem List/Assessment/Plan Problem List/Assessment/Plan #1 sepsis with acute appy s/p surgery: iv cefepime, clear liquid diet #2 htn: iv prn hydralazine #3 obesity advance care planning- full code- time spent 19 mins Plan discussed with: Patient My Orders My Orders Orders - JINA SHAFER MD Procedure Category Date Status Time Hydralazine Injection PHA 03/28/24 Verified (Apresoline Inject 17:15 Complete Blood Count LAB 03/29/24 Verified 06:00 Comprehensive LAB 03/29/24 Verified Metabolic Panel 06:00 Date of Service: Mar 28, 2024 Billing Provider: JINA SHAFER MD Common Visit Codes: [id number] INP/OBS CARE(HIGH) Secondary Visit Codes: [id number] CARE PLAN 30 MINUTES JINA SHAFER MD Mar 28, 2024 17:14
[2024-03-28] MEDS ORDERED: HYDROcodone-ACET 5/325MG TAB PO PRN (17:15)
[2024-03-28] MEDS ORDERED: HYDROmorphone HCL 2 MG/ML VL/or syr IV PRN (17:30)
--- NOTE | 2024-03-28 17:37 | DVHPN2 ---
Progress Note Date Seen: Mar 28, 2024 Medical Necessity Reason Pt with a Central, PICC or Fol: No Objective vital signs Vital Sign Date Time Temp Pulse Resp B/P (MAP) Pulse Ox O2 Delivery O2 Flow Rate FiO2 03/28/24 17:00 98.6 82 18 163/85 (111) 95 98.6 03/28/24 08:00 Room Air* 0 21 Total Intake and Output 03/27/24 03/27/24 03/28/24 15:00 23:00 07:00 Intake Total 50 ml 150 ml Output Total 0 ml Balance 50 ml 150 ml medications Current Medications Medications Dose Ordered Sig/Willi Route Start Time Stop Time Status Last Admin Dose Admin Pantoprazole Sodium 40 mg DAILY IV 03/28/24 10:00 03/28/24 09:10 40 MG Ondansetron HCl 4 mg Q4HP PRN IV 03/27/24 19:00 Cefepime HCl 50 ml @ 12.5 mls/hr Q12H IV 03/28/24 08:00 03/28/24 09:10 12.5 MLS/HR Hydralazine HCl 10 mg Q6HP PRN IV 03/28/24 17:15 Sodium Chloride 1,000 ml @ 60 mls/hr [id number] IV 03/28/24 17:15 Docusate Sodium 100 mg BID PO 03/28/24 22:00 Acetaminophen/ Hydrocodone Bitart 1 tab Q6HPRN PRN PO 03/28/24 17:15 Hydromorphone HCl 0.25 mg Q4HPRN PRN IV 03/28/24 17:30 UNV laboratory and microbiology Laboratory Tests 03/28/24 07:13 Test 03/28/24 07:13 Range/Units Serum Glucose 184 H 74-106 mg/dL Problem List/Assessment/Plan Problem List/Assessment/Plan AFEBRILE VSS ABD SOFT DISTENDED NO BM NO FLATUS ILEUS CONTINUE CLOSE OBSERVATION IV ABX DRAIN 100 CCC SEROSANGUINEOUS MONITOR DRAIN NO COMPLICATIONS Plan discussed with: Patient My Orders My Orders Orders - ANITA CEDENO MD Procedure Category Date Status Time Clear Liq Diet DIET 03/28/24 Transmitted Breakfast Hydromorphone PHA 03/28/24 Logged Injection (Dilaudid 17:30 ANITA CEDENO MD Mar 28, 2024 17:37
[2024-03-28] MEDS: hydrALAZINE HCL 20 MG/ML VL IV PRN (17:38)
[2024-03-28] MEDS: SODIUM CHLORIDE 0.9% 1,000 ML IV SCH (17:41)
[2024-03-28] MEDS: DOCUSATE SOD 100 MG CAP PO SCH (22:00)
[2024-03-29] VITALS (8 sets, daily range): BP systolic 145–168; BP diastolic 76–87; PULSE 68–107; RESP 14–17; TEMP 98–98.7; O2SAT 91–97
[2024-03-29 07:34] LABS: Basophils # (auto) 0 10 ^3/uL (0-0.2); Basophils % (auto) 0.1 % (0.0-2.0); Eosinophils # (auto) 0 10 ^3/uL (0-0.8); Eosinophils % (auto) 0.1 % (0.0-7.0); Hematocrit 43.1 % (41.0-53.0); Lymphocytes # (auto) 0.9 10 ^3/uL (0.4-5.4); Lymphocytes % (auto) 5.3 % (10.0-50.0); Mean Corpuscular Hemoglobin 32.2 pg (28.0-32.0); Mean Corpuscular Hgb Conc. 32.5 g/dL (32.0-36.0); Mean Corpuscular Volume 99.2 fL (80.0-100.0); Monocytes # (auto) 1.6 10 ^3/uL (0-1.3); Neutrophils # (auto) 13.8 10 ^3/uL (1.6-8.6); Neutrophils % (auto) 84.5 % (37.0-80.0); Platelet Count (auto) 255 10^3/uL (140-450); Red Blood Cells 4.35 10^6/uL (4.5-5.90); Red Cell Distribution Width 13.9 % (11.8-14.3); White Blood Cell 16.3 10^3/uL (4.4-10.8)
[2024-03-29 07:55] LABS: Alanine Aminotransferase 11 U/L (7-40); Alkaline Phosphatase 86 U/L (46-116); Anion Gap 9 (5-15); BUN/Creatinine Ratio 16.4 (10.0-20.0); Blood Urea Nitrogen 11 mg/dL (9-23); Calcium 9.6 mg/dL (8.7-10.4); Carbon Dioxide 23 mmol/L (20-31); Chloride 104 mmol/L (98-107); Potassium 3.9 mmol/L (3.5-5.1)
[2024-03-29 07:56] LABS: Albumin 3.6 g/dL (3.2-4.8); Aspartate Aminotransferase 15 U/L (13-40); Bilirubin, Total 0.5 mg/dL (0.2-1.0); Total Protein 6.5 g/dL (5.7-8.2)
[2024-03-29 07:58] LABS: Glucose 108 mg/dL (74-106); Sodium 136 mmol/L (136-145)
--- NOTE | 2024-03-29 11:29 | DVHPN2 ---
Progress Note Date Seen: Mar 29, 2024 Medical Necessity Reason Pt with a Central, PICC or Fol: No Subjective Patient reports: No new complaints Review of Systems: HEENT:Normal, CVS:Normal, RESPIRATORY:Normal, GI:Normal, :Normal, MSK:Normal, NEURO:Normal Objective vital signs Vital Sign Date Time Temp Pulse Resp B/P (MAP) Pulse Ox O2 Delivery O2 Flow Rate FiO2 03/29/24 08:59 98.7 98 16 162/86 (111) 95 98.7 03/28/24 20:00 Room Air* 0 21 Total Intake and Output 03/28/24 03/28/24 03/29/24 15:00 23:00 07:00 Intake Total 50 ml 220 ml 250 ml Output Total 30 ml 75 ml 300 ml Balance 20 ml 145 ml -50 ml medications Current Medications Medications Dose Ordered Sig/Willi Route Start Time Stop Time Status Last Admin Dose Admin Pantoprazole Sodium 40 mg DAILY IV 03/28/24 10:00 03/29/24 08:45 40 MG Ondansetron HCl 4 mg Q4HP PRN IV 03/27/24 19:00 Cefepime HCl 50 ml @ 12.5 mls/hr Q12H IV 03/28/24 08:00 03/28/24 21:25 12.5 MLS/HR Hydralazine HCl 10 mg Q6HP PRN IV 03/28/24 17:15 03/28/24 17:38 10 MG Sodium Chloride 1,000 ml @ 60 mls/hr [id number] IV 03/28/24 17:15 03/28/24 17:41 60 MLS/HR Docusate Sodium 100 mg BID PO 03/28/24 22:00 03/29/24 08:46 100 MG Acetaminophen/ Hydrocodone Bitart 1 tab Q6HPRN PRN PO 03/28/24 17:15 Hydromorphone HCl 0.25 mg Q4HPRN PRN IV 03/28/24 17:30 Examination: GENERAL:Normal, HEENT:Normal, NECK:Normal, LUNGS:Normal, CVS:Normal, ABDOMEN:Normal, ABDOMEN:Abnormal (drain+), MSK:Normal, SKIN:Normal, NEURO:Normal, :Normal laboratory and microbiology Laboratory Tests 03/29/24 06:51 Test 2/18/25 06:51 Range/Units Serum Glucose 108 H 74-106 mg/dL Problem List/Assessment/Plan Problem List/Assessment/Plan #1 sepsis with acute appy s/p surgery: iv cefepime, full liquid diet #2 htn: iv prn hydralazine #3 obesity advance care planning- full code- time spent 19 mins Plan discussed with: Patient My Orders My Orders Orders - JINA SHAFER MD Procedure Category Date Status Time Hydralazine Injection PHA 03/28/24 In Process (Apresoline Inject 17:15 Sodium Chloride 0.9% PHA 03/28/24 In Process 17:15 Docusate Sodium PHA 03/28/24 In Process Capsule (Colace 22:00 Hydrocodone-Acet PHA 03/28/24 In Process 5/325mg Tab ([place] 17:15 Date of Service: Mar 29, 2024 Billing Provider: JINA SHAFER MD Common Visit Codes: [id number] INP/OBS CARE(HIGH) JINA SHAFER MD Mar 29, 2024 11:29
--- NOTE | 2024-03-29 14:44 | DVHPN2 ---
Progress Note Date Seen: Mar 29, 2024 Medical Necessity Reason Pt with a Central, PICC or Fol: No Objective vital signs Vital Sign Date Time Temp Pulse Resp B/P (MAP) Pulse Ox O2 Delivery O2 Flow Rate FiO2 03/29/24 13:14 98.5 87 16 155/80 (105) 94 98.5 03/29/24 08:00 Room Air* 0 21 Total Intake and Output 03/28/24 03/28/24 03/29/24 15:00 23:00 07:00 Intake Total 50 ml 220 ml 250 ml Output Total 30 ml 75 ml 300 ml Balance 20 ml 145 ml -50 ml medications Current Medications Medications Dose Ordered Sig/Willi Route Start Time Stop Time Status Last Admin Dose Admin Pantoprazole Sodium 40 mg DAILY IV 03/28/24 10:00 03/29/24 08:45 40 MG Ondansetron HCl 4 mg Q4HP PRN IV 03/27/24 19:00 Cefepime HCl 50 ml @ 12.5 mls/hr Q12H IV 03/28/24 08:00 03/28/24 21:25 12.5 MLS/HR Hydralazine HCl 10 mg Q6HP PRN IV 03/28/24 17:15 03/28/24 17:38 10 MG Sodium Chloride 1,000 ml @ 60 mls/hr [id number] IV 03/28/24 17:15 03/28/24 17:41 60 MLS/HR Docusate Sodium 100 mg BID PO 03/28/24 22:00 03/29/24 08:46 100 MG Acetaminophen/ Hydrocodone Bitart 1 tab Q6HPRN PRN PO 03/28/24 17:15 Hydromorphone HCl 0.25 mg Q4HPRN PRN IV 03/28/24 17:30 laboratory and microbiology Laboratory Tests 03/29/24 06:51 Test 03/29/24 06:51 Range/Units Serum Glucose 108 H 74-106 mg/dL Problem List/Assessment/Plan Problem List/Assessment/Plan AFEBRILE VSS ABD SOFT DISTENDED BM + CONTINUE CLOSE OBSERVATION IV ABX DRAIN 25 CCC SEROSANGUINEOUS MONITOR DRAIN NO COMPLICATIONS ADVANCE DIET JAQUI NURSE AT BEDSIDE Plan discussed with: Patient My Orders My Orders Orders - ANITA CEDENO MD Procedure Category Date Status Time Hydromorphone PHA 03/28/24 In Process Injection (Dilaudid 17:30 ANITA CEDENO MD Mar 29, 2024 14:44
[2024-03-29] MEDS: diphenhdrAMINE HCL 25 MG CAP PO ONE (23:28)
[2024-03-30 01:00] VITALS: BP 144/74; PULSE 103; RESP 15; TEMP 98.4; O2SAT 98
[2024-03-30 05:00] VITALS: BP_SYST 117; BP_SYST 131; BP_DIAS 67; BP_DIAS 69; PULSE 96; PULSE 99; RESP 15; RESP 16; TEMP 97.4; TEMP 98.3; O2SAT 95; O2SAT 96
[2024-03-30 08:00] VITALS: PULSE 95; RESP 18; O2SAT 97
[2024-03-30 09:30] VITALS: TEMP 98.1
[2024-03-30 09:34] LABS: Basophils # (auto) 0 10 ^3/uL (0-0.2); Basophils % (auto) 0.2 % (0.0-2.0); Eosinophils # (auto) 0.3 10 ^3/uL (0-0.8); Eosinophils % (auto) 2.3 % (0.0-7.0); Hematocrit 42.3 % (41.0-53.0); Hemoglobin 13.7 g/dL (13.5-17.5); Lymphocytes # (auto) 0.8 10 ^3/uL (0.4-5.4); Lymphocytes % (auto) 7.6 % (10.0-50.0); Mean Corpuscular Hemoglobin 32.3 pg (28.0-32.0); Mean Corpuscular Hgb Conc. 32.3 g/dL (32.0-36.0); Mean Corpuscular Volume 99.8 fL (80.0-100.0); Monocytes # (auto) 1.3 10 ^3/uL (0-1.3); Monocytes % (auto) 11.6 % (0.0-12.0); Neutrophils # (auto) 8.7 10 ^3/uL (1.6-8.6); Neutrophils % (auto) 78.3 % (37.0-80.0); Nucleated Red Blood Cells % 0.1 %; Platelet Count (auto) 249 10^3/uL (140-450); Red Blood Cells 4.24 10^6/uL (4.5-5.90); Red Cell Distribution Width 14.5 % (11.8-14.3)
[2024-03-30 09:50] LABS: Calcium 8.9 mg/dL (8.7-10.4); Chloride 105 mmol/L (98-107); Potassium 3.9 mmol/L (3.5-5.1)
[2024-03-30 09:51] LABS: Anion Gap 7 (5-15); Carbon Dioxide 23 mmol/L (20-31)
[2024-03-30 09:56] LABS: BUN/Creatinine Ratio 12.9 (10.0-20.0); Blood Urea Nitrogen 9 mg/dL (9-23)
[2024-03-30 10:09] LABS: Glucose 117 mg/dL (74-106); Sodium 135 mmol/L (136-145)
--- NOTE | 2024-03-30 12:05 | DVHDS2 ---
Discharge Summary Date of Admission Mar 27, 2024 at 18:56 Date of Discharge: Mar 30, 2024 Labs/Diagnostic Data: Laboratory Results Test 03/30/24 09:01 03/29/24 06:51 03/28/24 07:13 03/27/24 19:07 White Blood Count 11.0 10^3/uL (4.4-10.8) Red Blood Count 4.24 10^6/uL (4.5-5.90) Hemoglobin 13.7 g/dL (13.5-17.5) Hematocrit 42.3 % (41.0-53.0) Mean Corpuscular Volume 99.8 fL (80.0-100.0) Mean Corpuscular Hemoglobin 32.3 pg (28.0-32.0) Mean Corpuscular Hemoglobin Concent 32.3 g/dL (32.0-36.0) Red Cell Distribution Width 14.5 % (11.8-14.3) Platelet Count 249 10^3/uL (140-450) Mean Platelet Volume 9.8 fL (6.9-10.8) Neutrophils (%) (Auto) 78.3 % (37.0-80.0) Lymphocytes (%) (Auto) 7.6 % (10.0-50.0) Monocytes (%) (Auto) 11.6 % (0.0-12.0) Eosinophils (%) (Auto) 2.3 % (0.0-7.0) Basophils (%) (Auto) 0.2 % (0.0-2.0) Neutrophils # (Auto) 8.7 10 ^3/uL (1.6-8.6) Lymphocytes # (Auto) 0.8 10 ^3/uL (0.4-5.4) Monocytes # (Auto) 1.3 10 ^3/uL (0-1.3) Eosinophils # (Auto) 0.3 10 ^3/uL (0-0.8) Basophils # (Auto) 0 10 ^3/uL (0-0.2) Nucleated Red Blood Cells 0.1 % Sodium Level 135 mmol/L (136-145) Potassium Level 3.9 mmol/L (3.5-5.1) Chloride Level 105 mmol/L (98-107) Carbon Dioxide Level 23 mmol/L (20-31) Anion Gap 7 (5-15) Blood Urea Nitrogen 9 mg/dL (9-23) Creatinine 0.70 mg/dL (0.700-1.30) Glomerular Filtration Rate Calc 109 mL/min (>90) BUN/Creatinine Ratio 12.9 (10.0-20.0) Serum Glucose 117 mg/dL (74-106) Calcium Level 8.9 mg/dL (8.7-10.4) Total Bilirubin 0.5 mg/dL (0.2-1.0) Aspartate Amino Transferase (AST) 15 U/L (13-40) Alanine Aminotransferase (ALT) 11 U/L (7-40) Alkaline Phosphatase 86 U/L (46-116) Total Protein 6.5 g/dL (5.7-8.2) Albumin 3.6 g/dL (3.2-4.8) Differential Total Cells Counted 100.0 (100) Neutrophils % (Manual) 94 (37.0-80.0) Band Neutrophils % (Manual) 0 Lymphocytes % (Manual) 3 (10.0-50.0) Monocytes % (Manual) 3 (0-12) Eosinophils % (Manual) 0 (0-7) Basophils % (Manual) 0 (0.0-2.0) Metamyelocytes % (manual) 0 Myelocytes % (Manual) 0 Promyelocytes % (Manual) 0 Blast Cells % (Manual) 0 Reactive Lymphocytes 0 Platelet Estimate Adequate Macrocytosis Slight Prothrombin Time 11.7 sec (9.3-11.8) Prothrombin Time INR 1.12 (0.9-1.15) Activated Partial Thromboplast Time 32.5 SEC (24.5-34.5) Test 03/27/24 14:32 03/27/24 13:44 Urine Color Widener (Yellow) Urine Clarity Turbid (Clear) Urine pH 5.5 (5.0-9.0) Urine Specific [place] 1.029 (1.001-1.035) Urine Protein 1+ (Negative) Urine Ketones 1+ (Negative) Urine Blood Negative /uL (Negative) Urine Nitrite Negative (Negative) Urine Bilirubin 1+ (Negative) Urine Urobilinogen 4 mg/dL (Negative) Urine Leukocyte Esterase Trace /uL (Negative) Urine RBC 2 /hpf (0 - 3) Urine Microscopic WBC 3 /HPF (0-3) Urine Squamous Epithelial Cells Few /hpf (<5) Urine Bacteria Few /hpf (None Seen) Urine Hyaline Casts Many /lpf (0 - 2) Urine Mucus Few (None Seen) Urine Glucose Normal mg/dL (Normal) Lipase 25 U/L (12-53) Other Laboratory Tests 03/30/24 09:01 Brief Hx & Hospital Course: see dictated note Condition at Discharge: Good Final Diagnosis/Problems List acute appy Discharge Disposition: Home Discharge Instruct/Medications Diet: Regular Activity: No Restrictions, As Tolerated Follow Up/Referral: schedule appt with surgery/dr Novak in 1 wk Medications: resume home meds script to pharmacy Discharge Statement: "Patient was advised to return to the ER or call 911 if any headaches, dizziness, shortness of breath, chest pain, abdominal pain, bleeding, fevers, or worsening of medical condition. Patient was counseled about treatment plan, medications, possible side effects, patientverbalized understanding. All questions were answered to the best of my ability. This discharge took greater then 30 minutes in planning, reviewing documentation, counseling the patient, and discussing with other team members." ASSESSMENT ASSESSMENT Assessment acute appy Date of Service: Mar 30, 2024 Billing Provider: JINA SHAFER MD Common Visit Codes: 18627-TNW/OBS DISCH DAY >30min JINA SHAFER MD Mar 30, 2024 12:05
[2024-03-30] MEDS ORDERED: MET500T PO (12:06)
[2024-03-30] MEDS ORDERED: LEVO500T91 PO (12:06)
--- NOTE | 2024-03-30 12:16 | DVHDS ---
DATE OF DISCHARGE: 03/30/2024 HISTORY OF PRESENT ILLNESS: The patient is a 53-year-old gentleman who was admitted with complaints of severe abdominal pain and has previous history of hypertension. HOSPITAL COURSE: The patient had a CT of abdomen and pelvis that showed evidence of acute appendicitis. The patient was seen in surgery consult by Dr. Brien Novak. The patient underwent surgery with appendectomy and lysis of adhesions. The patient's white count was elevated up to 18,000, that improved to 11,000 at time of discharge. The patient is now tolerating oral diet and will be discharged home to be on Levaquin 500 mg daily for 7 days and Flagyl 500 mg t.i.d. for 7 days. He has been cleared for discharge by Dr. Novak. The patient will follow up with the surgery clinic in 1 week. FINAL DIAGNOSES: Therefore, * Acute episode of acute appendicitis with sepsis, status post laparoscopic cholecystectomy. * Obesity. * Likely hypertension. Time spent in discharge planning and review of plan with the patient and nursing was 38 minutes. MD ANALILIA Sheffield/ABEL TID: [id number] RECEIPT: [id number]
[2024-03-30] MEDS ORDERED: LOSA-534 PO (12:18)
[2024-03-30 12:37] VITALS: BP 157/81; PULSE 81; RESP 18; TEMP 98.6; O2SAT 98
[2024-03-30 12:54] VITALS: BP 157/81; PULSE 89; RESP 18; TEMP 98.1; O2SAT 98
== END 2024-03-30 14:28 | disposition home or self-care (01) | DRG 710 ==
LOC: ER 12:51 → OVERFLOW 18:56 → WEST WING 19:01
PROVIDERS: ADMIT Internal Medicine; ATTEND Internal Medicine
PROC: 0W9F4ZZ Drainage of Abdominal Wall, Percutaneous Endoscopic Approach (ICD-10-PCS; 2024-03-27)
PROC: 0DTJ4ZZ Resection of Appendix, Percutaneous Endoscopic Approach (ICD-10-PCS; principal; 2024-03-27 19:55)
DX: A41.9 Sepsis, unspecified organism (principal); K35.33 Acute appendicitis with perforation, localized peritonitis, and gangrene, with abscess; E66.9 Obesity, unspecified; D72.829 Elevated white blood cell count, unspecified; I10 Essential (primary) hypertension; Z79.899 Other long term (current) drug therapy; Z88.0 Allergy status to penicillin; Z68.30 Body mass index [BMI] 30.0-30.9, adult
CPT/HCPCS: 36415; 71045; 74176; 80048; 80053; 81001; 83690; 85007; 85025; 85027; 85610; 85730; 86850; 86900; 86901; 96361; 96374; 96375; G0378; J0330; J0692; J1100; J2250; J2405; J2470; J3490